=== PATIENT | male | born 1980 | race Caucasian/White ===

== ENCOUNTER 2020-11-29 23:44 | Emergency (ER) | payer OTHER, SELFPAY ==
[2020-11-29 23:54] VITALS: BP 130/70; PULSE 72; RESP 16; TEMP 36.7
--- NOTE | 2020-11-29 23:59 | ED.GENADUL_ITS ---
Discharge Plan Disposition Patient Disposition: HOME Condition: Good Discharge Details Clinical Impression: Laceration of scalp ED Provider: Constantino Issa Home Meds and New Rx's Prescriptions: No Action No Known Home Meds RF: 0 Discharge Instructions Instructions: Skin Adhesive Care (ED), Head Laceration (ED) Additional Instructions: Do not directly soak the area. Watch for any signs of infection and return if any increasing redness, swelling, pain, drainage. You can gently scrub the Dermabond in the next 5 to 7 days to remove it from the area, or let it come off naturally on its own. If it is slightly more stuck to the skin you can always use rubbing alcohol to help remove it. Please update your tetanus shot as soon as you are willing to get it updated. If you notice any worsening of your symptoms, or any new symptoms such as vomiting, diarrhea, fever, chills, shortness of breath, chest pain, numbness, weakness, or fainting , please return immediately to the emergency department for reevaluation. Please follow up with your primary care provider as soon as possible for reassessment and reevaluation. As always, it was a pleasure participating in your medical care today. Medical Decision Making 40-year-old male with no significant past medical history presents today for evaluation of laceration to his scalp. Patient states that he was stacking wood 3 hours ago when a piece of wood fell and hit his scalp. It caused a small laceration. He washed it, but unfortunately it continues to bleed later in the evening. He came in for further evaluation. He denies any loss of consciousness, blood thinner use, or significant pain. Last tetanus shot was in 2005. No other complaints at this time. No other modifying factors. Physical exam demonstrates small 3 cm linear laceration on the scalp, notably superficial. No evidence of deep tissue involvement, bone exposure, gluteal exposure, or significant subcu exposure for that matter. Debated whether or not to just bandage versus Dermabond. We did decide to Dermabond the superficial component out of an abundance of precaution. Patient tolerated this well. Good wound edge reapproximation. Patient declined tetanus update today stating he does have a ski trip tomorrow and does not want this to impact it. Did recomm end getting tetanus shot update on an outpatient basis as soon as willing or possible. Discussed red flags which to return. Normal neurologic exam, no indication for emergent imaging, no indication clinically of concussion or significant intracranial bleed based on exam and mechanism. I have extensively reviewed the treatment plan and discharge instructions with the patient. I have addressed all patient concerns at this time. The patient was made aware of what symptoms to monitor for that would warrant a return to the emergency department. Discussed the plan with the patient, they demonstrate verbal understanding and agreement with our assessment and plan at this time. The documentation in this chart was dictated using [employer] dictation software. Please excuse any dictation errors. HPI General Date/Time Provider Initiated Documentation: 11/29/20 23:45 . HPI Narrative: 40- year-old male with no significant past medical history presents today for evaluation of laceration to his scalp. Patient states that he was stacking wood 3 hours ago when a piece of wood fell and hit his scalp. It caused a small laceration. He washed it, but unfortunately it continues to bleed later in the evening. He came in for further evaluation. He denies any loss of consciousne ss, blood thinner use, or significant pain. Last tetanus shot was in 2005. No other complaints at this time. No other modifying factors. Related Data Home Medications Medication Instructions Recorded Confirmed Unknown [No Known Home Meds] 11/30/20 11/30/20 Allergies Allergy/AdvReac Type Severity Reaction Status Date / Time No Known Drug Allergies Allergy Unverified 11/30/20 00:05 Review of Systems All systems reviewed & are unremarkable except as noted in HPI and below [facility] Social History Smoking/Tobacco Use Status: Former Tobacco Use Smoking risk assessment performed?: Yes Alcohol Intake: current Alcohol Intake frequency: a few times a week Drug use: Never Substance use type: does not use Do you feel safe at home: Yes Do you feel safe in your relationship?: Yes Exam Narrative Exam Narrative: 1.Const: Well-nourished, Well-developed, appearing stated age 2.Eyes: PERRL, no conjunctival injection, and symmetrical lids. 3.ENT: Atraumatic external nose and ears. Moist MM. Neck: Symmetric, trachea midline, No thyromegaly. There is no evidence of raccoon eyes, benitez sign, CSF rhinorrhea, mastoid tenderness, cranial crepitus, hemotympanum, exophthalmos, or hyphema. Patient demonstrates intact dentition with no signs of tooth avulsion or fracture, no signs of jaw deformity, no evidence of a LeFort's fracture, with an intact palate, nose and orbital region. There is no evidence of a nasal septal hematoma. No proptosis. Jaw closes symmetrically. Airway is clear. 4.CVS: +S1/S2, No murmurs or gallops. Peripheral pulses 2+ and equal in all extremities. Brisk capillary refill in all extremities. 5.RESP: Unlabored respiratory effort. Clear to auscultation bilaterally. No wheezes rales or rhonchi 6.GI: Soft, Nontender/Nondistended, No hepatosplenomegaly. No guarding or rebound. 7.MSK: Normocephalic/Atraumatic, Extremities w/o deformity or ttp No cyanosis or clubbing, Normal movement of all extremities 8.Skin: Warm, Dry. Patient left upper scalp demonstrates a 3 cm notably superficial laceration, no evidence of deep tissue involvement, no evidence of bone, periosteum, or or glial tissue present. Laceration is linear. No other a bnormalities or signs of trauma. 9.Neuro: recruiting coordinator II-XII grossly intact. Sensation grossly intact, no focal neurologic deficits. All 6 cardinal planes of vision are fully intact. No evidence of rotatory or vertical nystagmus. The patient demonstrated a normal [id number], good dexterity. There was no evidence of dysdiadochokinesia. Patient was able to ambulate without difficulty. There was no wide-based gait. Romberg testing was normal. Luxl-he-xsuo testing was normal. Sensation was intact bilaterally as well as muscle strength bilaterally for all extremities. Patient was able to verbalize butter cup with no slurring, or miss pronunciation. 10.Psych: (AAO) x3. Appropriate mood and affect Procedures Laceration Laceration 1: Site: scalp Side (If applicable): left Size (cm): 3 Description: linear Depth: simple, single layer Pre-repair: irrigated extensively and deep structures intact Skin layer closed with: other (Dermabond)
== END 2020-11-30 00:23 | disposition home or self-care (01) ==
PROVIDERS: Emergency Provider Student in an Organized Health Care Education/Training Program
DX: S01.01XA Laceration without foreign body of scalp, initial encounter (principal); W20.8XXA Other cause of strike by thrown, projected or falling object, initial encounter
CPT/HCPCS: 12002